=== PATIENT | female | born 1995 | race Caucasian/White ===

== ENCOUNTER → 2019-10-02 | Outpatient (CLI) | payer SELFPAY ==
[2019-10-02 08:54] VITALS: BMI 22.3
[2019-10-04 02:30] LABS: HPV Reflexed? NOT INDICATED
== END | disposition home or self-care (01) ==
LOC: LABSPEC 11:11
PROVIDERS: Visit Provider Nurse Practitioner Women's Health
DX: Z12.4 Encounter for screening for malignant neoplasm of cervix (principal)
CPT/HCPCS: 88175; G0145

== ENCOUNTER → 2019-10-04 15:59 | Outpatient (CLI) | payer SELFPAY ==
[2019-10-02 08:54] VITALS: BMI 22.3
--- NOTE | 2019-10-04 16:01 | US_ITS ---
STUDY: ULTRASOUND OF THE FEMALE PELVIS - COMPLETE REASON FOR EXAM: Female, 24 years old. PELVIC PAIN LMP: 09/20/2019 TECHNIQUE: Transabdominal real-time exam with ferreira scale image documentation. Transvaginal ultrasound was required for adequate visualization of the uterus and adnexal structures. TECHNICAL QUALITY: Adequate. COMPARISON: None. FINDINGS: The uterus is anteverted and is in a midline position. The uterus measures 6.6 x 3.9 x 2.9 cm. Nabothian cysts of the cervix. The endometrium measures 3 mm in thickness, and is hyperechoic. There is no demonstrated endometrial mass. There is no demonstrated myometrial mass. I.U.D. - The patient does not have an I.U.D. dilated adnexal veins bilaterally. The right ovary is visualized. The right ovary measures 2.2 x 2.1 x 1.3 cm. 10 x 11 x 8 mm dominant follicle of the right ovary. There is no visualized right adnexal mass or complex lesion. There is normal arterial and normal venous vascularity. The left ovary is visualized. The left ovary measures 2.5 x 1.6 x 1.3 cm. There is no left ovarian cyst or ovarian mass. There is no visualized left adnexal mass or complex lesion. There is normal arterial and normal venous vascularity. There is no fluid in the cul-de-sac. The pre void volume of the bladder was 375 ml. Polycystic ovary disease: No. US/Transvaginal Non- IMPRESSION: Normal uterus. 10 x 11 x 8 mm dominant follicle of the right ovary. Normal left ovary. No additional adnexal masses or free fluid. Dilated adnexal veins bilaterally. Electronically Signed: Blanca Erickson MD at 21:35 EDT , Service support ,
--- NOTE | 2019-10-04 16:07 | US_ITS ---
STUDY: ULTRASOUND OF THE FEMALE PELVIS - COMPLETE REASON FOR EXAM: Female, 24 years old. PELVIC PAIN LMP: 09/20/2019 TECHNIQUE: Transabdominal real-time exam with ferreira scale image documentation. Transvaginal ultrasound was required for adequate visualization of the uterus and adnexal structures. TECHNICAL QUALITY: Adequate. COMPARISON: None. FINDINGS: The uterus is anteverted and is in a midline position. The uterus measures 6.6 x 3.9 x 2.9 cm. Nabothian cysts of the cervix. The endometrium measures 3 mm in thickness, and is hyperechoic. There is no demonstrated endometrial mass. There is no demonstrated myometrial mass. I.U.D. - The patient does not have an I.U.D. dilated adnexal veins bilaterally. The right ovary is visualized. The right ovary measures 2.2 x 2.1 x 1.3 cm. 10 x 11 x 8 mm dominant follicle of the right ovary. There is no visualized right adnexal mass or complex lesion. There is normal arterial and normal venous vascularity. The left ovary is visualized. The left ovary measures 2.5 x 1.6 x 1.3 cm. There is no left ovarian cyst or ovarian mass. There is no visualized left adnexal mass or complex lesion. There is normal arterial and normal venous vascularity. There is no fluid in the cul-de-sac. The pre void volume of the bladder was 375 ml. Polycystic ovary disease: No. US/Pelvic (Non ) IMPRESSION: Normal uterus. 10 x 11 x 8 mm dominant follicle of the right ovary. Normal left ovary. No additional adnexal masses or free fluid. Dilated adnexal veins bilaterally. Electronically Signed: Blanca Erickson MD at 21:35 EDT , Service support ,
== END ==
PROVIDERS: Referring Provider Nurse Practitioner Women's Health; Visit Provider Nurse Practitioner Women's Health
DX: R10.2 Pelvic and perineal pain (principal); N92.6 Irregular menstruation, unspecified
CPT/HCPCS: 76830; 76856; 93976

== ENCOUNTER → 2019-10-11 13:48 | Outpatient (CLI) | payer SELFPAY ==
[2019-10-11 13:15] VITALS: BMI 22.3
[2019-10-11 14:14] LABS: Absolute Lymphocyte Count 2.53 X10^3/uL (0.83-4.51); Basophil# 0.01 X10^3/uL; Basophil% 0.2 % (0-1); Eosinophil# 0.01 X10^3/uL; Eosinophils% 0.2 % (0-5); Hematocrit 39.6 % (37-47); Hemoglobin 13.2 g/dL (12.0-15.0); Lymphocyte # 2.53 X10^3/ul (4.0); Lymphocyte % 42.1 % (19-41); Mean Corp Hgb Conc 33.3 g/dL (32-36); Mean Corpuscular Hgb 31.1 pg (27.0-32.0); Mean Corpuscular Volume 93.2 fL (81-99); Monocyte# 0.42 X10^3/uL; NRBC Flagged by Analyzer 0 % (0-5); Neutrophil # 3.03 X10^3/uL (2.7-7.7); Neutrophil % 50.3 % (47-70); Platelet Count 227 K/mm3 (150-450); RBC Distribution Width CV 11.9 % (11.6-14.6); RBC Distribution Width SD 40.5 fl (35.1-43.9); Red Blood Count 4.25 M/mm3 (4.2-5.4)
[2019-10-11 14:36] LABS: Thyroid Stim Hormone (TSH) 1.24 uIU/mL (0.358-3.74)
[2019-10-13 03:06] LABS: Factor VIII Activity 103 % (56-140); von Willebrand Factor Activity 86 % (50-200)
[2019-10-13 13:27] LABS: VWD Studies Interp Report Note (.); von Willebrand Factor (vWF) Ag 103 % (50-200)
== END ==
PROVIDERS: Referring Provider Nurse Practitioner Women's Health; Visit Provider Nurse Practitioner Women's Health
DX: N92.1 Excessive and frequent menstruation with irregular cycle (principal)
CPT/HCPCS: 36415; 84443; 85025; 85240; 85245; 85246

== ENCOUNTER → 2019-12-25 | Outpatient (CLI) | payer SELFPAY ==
[2019-12-25 15:23] VITALS: BMI 22.2
== END | disposition home or self-care (01) ==
LOC: LABSPEC 16:46
PROVIDERS: Visit Provider Obstetrics & Gynecology
DX: R30.0 Dysuria (principal)
CPT/HCPCS: 87086; 87088; 87186

== ENCOUNTER 2020-01-09 06:58 | Day surgery (SDC) | payer SELFPAY ==
[2019-11-16 13:35] VITALS: BMI 22.3
[2020-01-01 13:59] VITALS: BMI 22.2
--- NOTE | 2020-01-02 13:07 | EKG12_ITS ---
Test Reason : PRE OP Blood Pressure : / mmHG Vent. Rate : 077 BPM Atrial Rate : 077 BPM P-R Int : 130 ms QRS Dur : 074 ms QT Int : 396 ms P-R-T Axes : 059 022 035 degrees QTc Int : 448 ms Normal sinus rhythm with sinus arrhythmia Normal ECG Confirmed by AUTUMN JAIME, DORON ([id number]), market editor BRIANNA CORTEZ ([id number]) on 01/04/2020 11:35:30 AM Referred By: Meka Gonzalez Confirmed By:DORON LEYVA MD
[2020-01-02 13:18] LABS: Hematocrit 45.6 % (37-47); Hemoglobin 14.4 g/dL (12.0-15.0); Mean Corp Hgb Conc 31.6 g/dL (32-36); Mean Corpuscular Hgb 30.3 pg (27.0-32.0); Mean Corpuscular Volume 95.8 fL (81-99); Mean Platelet Vol. 8.4 fl (6.2-12.0); Platelet Count 273 K/mm3 (150-450); RBC Distribution Width CV 12.2 % (11.6-14.6); RBC Distribution Width SD 43.2 fl (35.1-43.9); Red Blood Count 4.76 M/mm3 (4.2-5.4); White Blood Count 5.6 K/mm3 (4.4-11.0)
[2020-01-02 13:29] LABS: Prothrombin Time (Protime)PT. 13.1 SECONDS (11.7-14.9)
[2020-01-02 13:30] LABS: Partial Thromboplast Time 26.8 Seconds (24.1-36.2)
[2020-01-02 13:45] LABS: AST(SGOT) 13 U/L (15-37); Alanine Aminotransfer ALT/SGPT 19 U/L (13-56); Albumin, Serum 4.4 g/dL (3.2-5.0); Alkaline Phosphatase 82 U/L (45-117); Anion Gap 4 (5-15); BUN 7 mg/dL (7-18); BUN/Creat Ratio 8.1 RATIO (10-20); Bilirubin, Direct 0.51 mg/dL (0.00-0.30); Chloride 108 mmol/L (98-107); Creatinine, Serum 0.86 mg/dL (0.55-1.02); EST Glomerular Filtration Rate 86 mL/min (>60); Est Glom Filt Rate - Afr Amer 104 mL/min (>60); Globulin 3.3 g/dL (2.2-4.2); Glucose 93 mg/dL (74-106); Protein, Total 7.7 g/dL (6.4-8.2); Sodium Level 138 mmol/L (136-145)
--- NOTE | 2020-01-07 12:00 | PCM.HPOB.BLA ---
- Problem List (1) Anxiety and depression Status: Acute (2) Chronic pelvic pain in female Status: Chronic Comment: failed medical management. plan d and c hysteroscopy cystoscopy diagnostic laparoscopy chromotubation with CO2 laser available plan IUD insertion. ref# for Co2 laser [id number] History and Physical Date of Admission: 01/09/20 Intake Vital Signs 01/01/20 BMI 22.2 01/01/20 Height 5 ft 4 in 01/01/20 Weight: 128 lb 01/01/20 BMI 21.9 01/01/20 BP 114/80 Intake Visit Reasons: Pre-op Chief Complaint: pre op Director Of Nursing Required: No Is patient in pain?: No Allergies No Known Allergies Allergy (Verified 01/01/20 13:58) Medications promethazine 12.5 mg tablet 12.5 mg PO Q6H PRN #60 tab 10/11/19 [Rx Confirmed 01/01/20] cyclobenzaprine 10 mg tablet 10 mg PO TID PRN #21 tab 11/27/19 [Rx Confirmed 01/01/20] Is last menstrual period known: No Post menopausal: No Patient : No : No PFSH Medical History Ovarian cyst (Acute) Surgical History Previous back surgery (Resolved) S/P cholecystectomy (Resolved) [place] teeth extracted (Resolved) Family History Grandmother Ovarian cancer Social History (Updated 01/01/20 @ 14:[address] 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 Pregancy History 0 Elective abortions Hx Para Spontaneous abortions Hx # Term Pregnancies Ectopic pregnancies Hx # Pregnancies Multiple births # of living children ROS Const Constitutional: Denies fatigue, fever(s), headache(s), increased appetite, poor appetite, weight gain or weight loss ENT ENT: Reports system reviewed and no additional complaints, except as docu Cardio Card: Denies chest pain Resp Resp: Denies cough or dyspnea GI GI: Reports as per HPI and abdominal pain; denies constipation, nausea or vomiting : Reports as per HPI; denies difficulty urinating, painful urination, nipple discharge, urinary frequency, urinary incontinence, urinary hesitancy, urinary urgency, vaginal discharge, vaginal dryness, vaginal odor or vaginal itching Musc Musc: Denies joint pain, back pain or muscle weakness Skin Skin/Breast: Denies nipple discharge Neuro Neuro: Reports system reviewed and no additional complaints, except as docu Psych Psych: Reports system reviewed and no additional complaints, except as docu Endo Endo: Denies cold intolerance, excessive sweating, heat intolerance or increased thirst Lucian/Lymph Hematologic/Lymphatic: Denies easy bleeding, Denies easy bruising, Denies enlarged lymph nodes Exam Const General: cooperative, healthy appearing, comfortable, no acute distress, well developed Nutritional Appearance: average body habitus Orientation: alert [facility] Head: normal to inspection, normocephalic Ears: hearing grossly normal bilaterally, external ears normal Nose: external nose normal, nares normal Face and sinus: normal facial exam Neck Neck: normal visual inspection, trachea midline Thyroid: thyroid normal Chest Chest palpation & inspection: normal inspection of the chest Resp Effort & Inspection: normal respiratory effort Auscultation: clear to auscultation bilaterally Cardio Rate: regular rate Rhythm: regular rhythm Heart Sounds: S1 normal, S2 normal GI Inspection: normal to inspection, non-distended Palpation: soft, no hepatosplenomegaly General: bladder normal to palpation External Female Exam: normal external appearance, normal appearance of the urethra Urethra: normal appearance of the urethra Speculum Exam - Vagina: normal appearance of the vagina, normal vaginal discharge Speculum Exam - Cervix: normal appearance of the cervix, nontender Bimanual Exam- Vagina & Uterus: bladder normal to palpation, No cervical tenderness Bimanual Exam- Adnexa, other: normal adnexae, adnexae mobile, no adnexal masses, pelvic support normal Pelvic Support: normal Musc Other: gross motor intact no deficits, full bilateral strength Skin General: no rashes or lesions noted Neuro General: alert, awake, moves all extremities, no focal motor deficits Motor: muscle tone normal throughout Extrem General: normal to inspection, no pedal edema Psych Appearance: grossly normal Mental Status: mental status grossly normal Affect: normal affect Speech and Movement: speech and movement normal Assessment & Plan Problems 1. Anxiety and depression F41.9; F32.9 2. Chronic pelvic pain in female R10.2; G89.29 failed medical management. plan d and c hysteroscopy cystoscopy diagnostic laparoscopy chromotubation with CO2 laser available plan IUD insertion. Plan After discussing the patient's diagnosis and treatment plan options, patient wishes to proceed with surgical management. I have discussed with the patient the risks, benefits, and alternatives of the procedure which include but are not limited to risks of anesthesia, bleeding, infection, possible damage to bowel, bladder, or surrounding vasculature which could lead to additional surgery to evaluate any complications. Patient agrees to procedure and wishes to proceed. ACOG/uptodate references given for additional information regarding procedure. Coding Level of Care Code No Charge Diagnoses Anxiety and depression F41.9; F32.9 Chronic pelvic pain in female R10.2; G89.29 UPDATE- I have seen the patient and performed any clinically relevant updates to the history and physical exam. Meka Gonzalez MD
[2020-01-09 07:29] VITALS: BP 111/72; PULSE 75; RESP 16; TEMP 37.2; O2SAT 100; BMI 22.6
[2020-01-09 07:30] LABS: Internal QC Validated? YES +Cl - CLEAR BKGD; Pregnancy, Urine Negative Negative
[2020-01-09] MEDS: Bupivacaine 0.25% 30 ML Vial (07:32)
[2020-01-09] MEDS: Lactated Ringers 1,000 ML 100 ML IV (07:44)
[2020-01-09] MEDS: Cefazolin 2 GM in 0.9% Normal Saline 100 ML IV (08:32)
--- NOTE | 2020-01-09 08:35 | EMB_PTH ---
PATIENT: IDRIS HIGUERA [place] [facility] [place][id number] AGE/SX: 24/F ROOM: RE01/09/[address]: Dr. Meka Gonzalez MD : [id number] BED: DIS: 01/09/2020 SPEC #: [id number] RECD: 01/09/20 09:25 STATUS: VINCENT BUCKY #: [id number] CARLINE: 01/09/20 08:[address]: Meka Gonzalez DEPT: SURGICAL PATHOLOGY RECD BY: [place] Palafox ENTERED: 01/09/20 11:15 SP TYPE: ENDOM BX/C OT DR: No Primary Care Phys Tissues: Endometrium, NOS Procedures: Surgery Specimen Level IV HEADER OPERATION: Hysteroscopy, D & C, cystoscopy, diagnostic laparoscopy PRE-OP DIAGNOSIS: Chronic pelvic pain TISSUE SUBMITTED: Endometrial curettings MICROSCOPIC DIAGNOSIS Endometrium, curettings: Mildly disordered proliferative endometrium with focal glandular breakdown. Rare strips of benign superficial endocervix. AM:kevin 01/10/20 MICROSCOPIC DESCRIPTION Slides are reviewed. GROSS DESCRIPTION Received in fixative is one container labeled with the patient's name and designated endometrial curettings. The specimen consists of multiple fragments of hemorrhagic soft tissue mixed with blood clot that in aggregate measure 3 x 2.5 x 0.2 cm. The specimen is totally submitted in one cassette. / SJ:kevin 01/09/20 TC:5 CPT: 70947
[2020-01-09] MEDS: Levonorgestrel IUD (Liletta) 1 EACH IY (09:09)
--- NOTE | 2020-01-09 09:10 | OP.PCM_ITS ---
Problem List (1) Anxiety and depression Status: Acute (2) Chronic pelvic pain in female Status: Chronic Comment: failed medical management. plan d and c hysteroscopy cystoscopy diagnostic laparoscopy chromotubation with CO2 laser available plan IUD insertion. ref# for Co2 laser [id number] Report of Operation Date of Procedure: 01/09/20 Pre-Operative Diagnosis: Pelvic pain Post-Operative Diagnosis: Same Surgery/Procedure Performed:: D&C hysteroscopy diagnostic laparoscopy chromotubation cystoscopy Liletta IUD insertion Description of Surgical Findings:: nl pelvis and upper abdominal cavity, uterus, endometrium appearance, bladder lining. Type of Anesthesia:: General Special Medications: Toradol Specimen's removed: Endometrial curettings Drains: None Estimated Blood Loss (mL): minimal Fluids Replaced: Crystalloid Description of Procedure: Patient was taken to the operating room and placed under general anesthesia. She was prepped and draped in the normal sterile fashion in the dorsolithotomy position. Bladder drained of clear urine and uterus sounded and uterine manipulator inserted without difficulty. Attention was then paid to the abdominal portion and the base of the umbilicus was injected with Marcaine and using toe clamps the periumbilical area was elevated and a 5 mm stab incision was made at the base of the umbilicus and varies needle entered into the abdomen confirmed to be intra-abdominal with an opening pressure of less than 5 mmHg pressure. Abdomen was insufflated with CO2 gas until 15 mmHg pressure was o btained. 5 mm Optiview trocar was inserted under direct visualization in the pelvis and upper abdomen were well visualized. All structures were visualized and noted to be within normal limits. Anterior and posterior broad ligament and bilateral ovarian fossa's were identified and noted to be within normal limits. Methylene blue that was diluted was then inserted intrauterine to visualize intra-abdominal spill which was confirmed bilaterally with fallopian tube patency seen on both sides. Abdomen was desufflated of gas and all instruments removed from the abdomen and the vagina. Using 4-0 Monocryl erupted stitch was placed at the base of the umbilicus and OpSite placed over top. Attention to the vaginal portion of the procedure was then made with dilating the cervix to allow passage of a 5 mm hysteroscope which the uterine lining was noted to be within normal limits with no gross abnormalities. Sharp curettage was performed and sent to pathology for analysis. Cystoscopy was then performed by filling the bladder and visualizing bilateral strong ureteral spray and the entire lining was visualized to be with normal limits. Bladder was drained after being over distended and then refilled in the bladder lining visualized again and noted to be within normal limits with no gross abnormalities. All instruments removed from the patient and patient was awoken and taken recovery in stable condition. Grafts/Implants Used: none - Complications none - Admit VTE Documentation VTE Present on Admission: No VTE Mechan Device Prophylaxis: SCD's Multi Select Codes - Urinary/Genital Urinary/Genital CPT Codes: 43524 Cystoscopy, 74838 Insert IUD, 78347 Chromotubation, 64176 Hysteroscopy,EMC, Polypectomy, Other Procedure See Report - 04970 diagnostic laparoscopy PLEASE ADD THIS CODE AND DESCRIPTION TO THE LIST
--- NOTE | 2020-01-09 09:19 | PCM.DC.TUB ---
Discharge Diet: No Restrictions - Increase fluid intake for the next 48 hours. Discharge Activity: Return to Normal Activity, May Drive - when you are no longer taking narcotic pain medications., May Shower, May Take a Tub Bath - in 7 days Additional Activity Instructions:: Ambulate often the next week after surgery. Nothing in the vagina for 5 days. Call your doctor if your incision/area has: Continuous Slow Oozing, Sudden Increased Bleeding, Increased Pain/ Swelling, Increased Redness, Foul Smelling Discharge Call your doctor if you observe: Fever of 101 or Higher Allergies/Adverse Reactions: Allergies No Known Allergies Allergy (Verified 01/09/20 07:26) Medications to take at Discharge promethazine 12.5 mg tablet 12.5 mg PO Q6H PRN #60 tab 10/11/19 cyclobenzaprine 10 mg tablet 10 mg PO TID PRN #21 tab 11/27/19 Ferrous Sulfate [Iron] 325 mg PO DAILY 01/02/20 Ibuprofen [Motrin] 600 mg PO Q6H PRN PRN #30 tab 01/09/20 Oxycodone HCl/Acetaminophen [Percocet 5-325] 1 - 2 tab PO Q6H PRN PRN 7 Days #15 tab 01/09/20 The following prescriptions were given: Ibuprofen [Motrin] 600 mg PO Q6H PRN PRN #30 tab PRN Reason: Pain Transmission Status: Received by [facility] Oxycodone HCl/Acetaminophen [Percocet 5-325] 1 - 2 tab PO Q6H PRN PRN 7 Days #15 tab PRN Reason: Pain Transmission Status: Received by [facility] Primary Care Physician: Care Physician,No Primary [Primary Care Provider] - Test Results: Test results from this visit will be discussed in further detail at your follow-up appointment, if applicable. Please Follow Up With: Meka Gonzalez MD - [phone]
[2020-01-09 09:29] VITALS: BP 111/72; BP 113/71; PULSE 52; RESP 16; TEMP 36.3
[2020-01-09 09:44] VITALS: BP 102/81; BP 111/72; PULSE 44; RESP 16; O2SAT 93
[2020-01-09 10:03] VITALS: BP 111/72; BP 115/85; PULSE 46; RESP 14; O2SAT 94
[2020-01-09 10:08] VITALS: BP 111/72; BP 112/84; PULSE 47; RESP 14; TEMP 36.3; O2SAT 93
[2020-01-09] MEDS: HYDROcodone Bitartrate/Apap 5/325 Tablet PO (10:45)
[2020-01-09 11:26] VITALS: BP 111/72; BP 119/89; PULSE 60; RESP 16; TEMP 37.2; O2SAT 100
== END 2020-01-09 11:36 | disposition home or self-care (01) ==
LOC: SDC 06:59 → AC 07:00
PROVIDERS: Anesthesiology; Referring Provider Obstetrics & Gynecology; Visit Provider Obstetrics & Gynecology
PROC: 0UDB8ZZ Extraction of Endometrium, Via Natural or Artificial Opening Endoscopic (ICD-10-PCS; CPT 58558; principal; 2020-01-09 08:20)
DX: R10.2 Pelvic and perineal pain (principal); G89.29 Other chronic pain; Z30.430 Encounter for insertion of intrauterine contraceptive device; Z11.59 Encounter for screening for other viral diseases; F32.9 Major depressive disorder, single episode, unspecified; F41.9 Anxiety disorder, unspecified; D64.9 Anemia, unspecified
CPT/HCPCS: 49320; 58300; 58350; 58558; 36415; 80048; 80076; 81025; 85027; 85610; 85730; 86850; 86900; 86901; 87635; 88305; 93005; C9803; J7120; J2405; Q9968; U0003

== ENCOUNTER → 2021-10-01 | Outpatient (CLI) | payer SELFPAY | END | disposition home or self-care (01) | PROVIDERS: Visit Provider Nurse Practitioner Women's Health | DX: R10.2 Pelvic and perineal pain (principal); G89.29 Other chronic pain | CPT/HCPCS: 87070; 87205 ==

== ENCOUNTER → 2022-10-13 | Outpatient (CLI) | payer SELFPAY ==
[2022-10-15 11:11] LABS: HPV Reflexed? NOT INDICATED
== END | disposition home or self-care (01) ==
LOC: LABSPEC 11:54
PROVIDERS: Referring Provider Nurse Practitioner Women's Health; Visit Provider Nurse Practitioner Women's Health
DX: Z12.4 Encounter for screening for malignant neoplasm of cervix (principal)
CPT/HCPCS: 88175; G0145